=== PATIENT | female | born 1985 | race Two or more races ===

== ENCOUNTER 2019-02-26 08:45 | Observation (INO) | payer MEDICAID ==
[~2019-02-26 08:45] MED LIST: Lactated Ringers 1,000 ML IV SCH; Lidocaine 1%/Sod Bicarbonate in NS 8.4% 1 ML Syringe IDERM PRN; Sodium Chloride 0.9% 10 ML Syringe FLUSH PRN
--- NOTE | 2019-02-26 11:03 | PCM.PREANE ---
Preanesthetic Assessment - Anesthesia/Transfusion/Family Hx Anesthesia History: Prior Anesthesia Without Reaction Family History of Anesthesia Reaction: No Transfusion History: No Prior Transfusion(s) Intubation History: Unknown - Review of Systems General: No Symptoms Pulmonary: No Symptoms Cardiovascular: No Symptoms Gastrointestinal: No Symptoms Neurological: No Symptoms Other: Reports: None, Thyroid Problems - Physical Assessment NPO Status Date: 02/25/19 NPO Status Time: 20:00 O2 Sat by Pulse Oximetry: 100 Respiratory Rate: 18 Vital Signs: Last Vital Signs Temp 36.6 C 02/26/19 09:48 Pulse 70 02/26/19 09:48 Resp 18 02/26/19 09:48 BP 126/87 02/26/19 09:48 Pulse Ox 100 02/26/19 09:48 Height: 1.65 m Weight: 130.9 kg ASA Class: 3 Mental Status: Alert & Oriented x3 Airway Class: Mallampati = 3 Dentition: Reports: Normal Dentition Mouth Opening Finger Breadths: 2 ROM/Head Extension: Full Lungs: Clear to Auscultation, Normal Respiratory Effort Cardiovascular: Regular Rate, Regular Rhythm - Lab Values: Laboratory Last Values POC Glucose 90 mg/dL (70-105) 02/26/19 10:07 Urine HCG, Qual Negative (NEGATIVE) 02/26/19 09:50 - Allergies Allergies/Adverse Reactions: Allergies Allergy/AdvReac Type Severity Reaction Status Date / Time steri-strips Allergy Blisters Uncoded 02/25/19 14:10 - Blood Blood Available: No Product(s) Available: None - Anesthesia Plan Pre-Op Medication Ordered: None - Acknowledgements Anesthesia Type Planned: General Anesthesia Pt an Appropriate Candidate for the Planned Anesthesia: Yes Alternatives and Risks of Anesthesia Discussed w Pt/Guardian: Yes Pt/Guardian Understands and Agrees with Anesthesia Plan: Yes Additional Comments: glucose - 90 - morbidly obese- PreAnesthesia Questionnaire - Past Health History Medical/Surgical History: Denies Medical/Surgical History HEENT History: Reports: None Cardiovascular History: Reports: High Cholesterol Respiratory History: Reports: Other (See Below) Other Respiratory History: Pneumonia Gastrointestinal History: Reports: Other (See Below) Other Gastrointestinal History: Ventral hernia Genitourinary History: Reports: None [employer] OPERATOR History: Reports: Polycystic Ovaries, Other OB/BYN History: Gestational diabetes, pre-eclampsia, chlamydia Musculoskeletal History: Reports: None Neurological History: Reports: Migraines Psychiatric History: Reports: None Endocrine/Metabolic History: Reports: Obesity/BMI 30+, Other (See Below) Other Endocrine/Metabolic History: Insulin resistance Hematologic History: Reports: None Immunologic History: Reports: None Oncologic (Cancer) History: Reports: None Dermatologic History: Reports: None - Infectious Disease History Infectious Disease History: Reports: MRSA, Other (See Below) Other Infectious Disease History: H1N1 - Past Surgical History Head Surgeries/Procedures: Reports: None HEENT Surgical History: Reports: None Cardiovascular Surgical History: Reports: None Respiratory Surgical History: Reports: None GI Surgical History: Reports: None Female Surgical History: Reports: Section Endocrine Surgical History: Reports: None Neurological Surgical History: Reports: None Musculoskeletal Surgical History: Reports: None Oncologic Surgical History: Reports: None Dermatological Surgical History: Reports: None - SUBSTANCE USE Smoking Status *Q: Never Smoker Second Hand Smoke Exposure: No Recreational Drug Use History: No - HOME MEDS Home Medications: Home Meds Pnv95/Iron Fum/Folic Acid [ Caplet] 1 tab PO DAILY 04/26/16 [History] Cholecalciferol (Vitamin D3) [Vitamin D3] 1,000 units PO DAILY 02/25/19 [History ] SUMAtriptan [Imitrex] 50 mg PO ASDIRECTED PRN 02/25/19 [History] metFORMIN HCl [Metformin HCl] 1,000 mg PO DAILY 02/25/19 [History] - CURRENT (IN HOUSE) MEDS Current Meds: Current Medications Lactated Ringer's (Ringers, Lactated) 1,000 mls @ 125 mls/hr IV ASDIRECTED YURIY Stop: 02/26/19 23:00 Lidocaine/Sodium Bicarbonate (Buffered Lidocaine 1% In Ns 8.4%) 0.25 ml IDERM ONETIME PRN PRN Reason: Prior to IV Start Stop: 02/26/19 18:00 Sodium Chloride (Saline Flush) 10 ml FLUSH ASDIRECTED PRN PRN Reason: Keep Vein Open Stop: 02/26/19 18:00
[2019-02-26] MEDS ORDERED: fentaNYL 100 MCG/2 ML SDV ONE ×2 (11:07→11:54)
[2019-02-26] MEDS ORDERED: Propofol 200 MG/20 ML SDV ONE ×2 (11:07→16:35)
[2019-02-26] MEDS ORDERED: Rocuronium 50 MG/5 ML Vial ONE ×3 (11:08→16:46)
[2019-02-26] MEDS ORDERED: Midazolam 1 MG/ML 2 ML SDV ONE (11:08)
[2019-02-26] MEDS ORDERED: Ketorolac 30 MG/ML SDV ONE (11:10)
[2019-02-26] MEDS ORDERED: Ondansetron 4 MG/2 ML SDV ONE (11:10)
[2019-02-26] MEDS ORDERED: Dexamethasone 4 MG/ML SDV ONE (11:10)
[2019-02-26] MEDS ORDERED: Lidocaine 1% with EPINEPHrine 1:100,000 20 ML MDV ONE (11:21)
[2019-02-26] MEDS ORDERED: Bupivacaine 0.5%/EPINEPHrine 1:200,000 50 ML MDV ONE (11:21)
[2019-02-26] MEDS ORDERED: HYDROmorphone 0.5 MG/0.5 ML Syringe ONE ×5 (11:56→16:24)
[2019-02-26] MEDS ORDERED: Phenylephrine/Normal Saline 100 MCG/ML 10 ML Syringe ONE (12:12)
[2019-02-26] MEDS ORDERED: ceFAZolin 1 GM Vial ONE ×3 (12:12)
[2019-02-26] MEDS ORDERED: Glycopyrrolate 0.2 MG/ML SDV ONE ×5 (12:15→16:46)
[2019-02-26] MEDS ORDERED: Esmolol 100 MG/10 ML SDV ONE (12:21)
[2019-02-26] MEDS ORDERED: Lactated Ringers 1,000 ML ONE (12:25)
[2019-02-26] MEDS ORDERED: Neostigmine Methylsulfate 1 MG/ML 5 ML Syringe ONE (16:39)
--- NOTE | 2019-02-26 16:58 | PCM.OPNOTE ---
- General Post-Op/Procedure Note Date of Surgery/Procedure: 02/26/19 Operative Procedure(s): 1. laparoscopic incisional hernia repair with mesh. 2. Laparoscopic lysis of adhesions Findings: incisional hernia defects on superior incision, also 4cm x 7cm hernia defect in the LLQ along the incision Pre Op Diagnosis: ventral hernia Post-Op Diagnosis: incisional hernias Anesthesia Technique: General ET Tube Primary Surgeon: Dori Dixon Anesthesia Provider: Juan Valdivia Embedded Software Developer: Tom Joseph Reason Embedded Software Developer Was Necessary: complex surgical case Pathology: none Fluid Replacement, Intraop: 3,500 Output, Urine Amount: 250 EBL in mLs: 50 Complications: none apparent Condition: Good Free Text/Narrative:: Intake & Output 02/26/19 02/26/19 02/26/19 06:59 14:59 22:59 Output Total 250 Balance -250
[2019-02-26] MEDS ORDERED: Ondansetron 4 MG Tab.DIS PO PRN (17:07)
[2019-02-26] MEDS ORDERED: HYDROmorphone 1 MG/ML Syringe IVPUSH PRN (17:07)
--- NOTE | 2019-02-26 17:07 | PCM.PRNOTE ---
- Free Text/Narrative Note: Operative Report Date of surgery: February 26, 2019 Preoperative diagnosis: Ventral hernia Postoperative diagnosis: Incisional hernias Surgeon: Dr. Dori Dixon Anesthesia: General ET Sole Rounder: Juan Valdivia CRNA Estimated blood loss: 50 mL IV fluids: 3500 mL Urine output: 250mL Drains and lines: None Indication for the procedure: The patient is a 33-year-old lady who presented to my office with complaint of ventral hernia. The patient reports having , abdominal pain associated with hernia. She was originally seen and counseled against surgery due to her large body habitus, however, she continued to have symptoms and the symptoms worsened. She represented for discussion of hernia repair.. I discussed a procedure of a laparoscopic ventral hernia repair with mesh with the patient. Risks of infection, bleeding and mesh complication was reviewed, as well as her risk of recurrence due to her size. Written consent was obtained Description of the procedure: The patient presented to the outpatient holding area on the day for procedure history and physical were verified and the consent was present and on the chart. She was taken back to the operating room and placed in supine position on the operating table. SCD boots were placed and functional prior to the service procedure. The patient received preoperative antibiotics as per SCIP protocol. A Adame catheter was placed with return of clear yellow urine. The patient had successful induction of general anesthesia and was intubated without difficulty. The patient's left arm was tucked and the pressure points were padded. The patient was prepped and draped in standard surgical fashion and a timeout was performed. The abdomen was draped with Ioban to begin. A 5 mm incision was then made in the left upper quadrant just under the subcostal margin. A 5 mm port was then inserted into the abdomen with the Visiport technique. The abdomen was insufflated to 15 mmHg. There was no evidence of any injury in the area where we had entered the abdomen. We then proceeded to survey the area of hernia. There were adhesions to the midline abdominal wall as well as a large left lower quadrant defect. We proceeded to place a TAP block using 1% lidocaine with epinephrine mixed with 0.5% bupivacaine with epinephrine. A 5 mm port was inserted in the right lower quadrant and right upper quadrant. An additional 5 mm port was placed in the right abdomen. We proceeded to remove the adhesions to the midline scar using a LigaSure device. We then were able to identify the hernia defect. There was small bowel within the hernia defect. This was reduced. We then proceeded to remove any additional scar tissue. We then used a spinal needle to size the hernia, however, due to her large size , spinal needle would not traverse the area. A ruler was then passed into the abdomen and the hernia defect measured approximately 4 cm x 7 cm. there were additional small subcentimeter defects at the superior aspect of the scar of the umbilicus. In order to cover the entire area of hernia, an oval two-sided [id number] mesh was selected. A 12 mm port was then placed through the hernia defect in the left lower quadrant and the mesh was rolled and placed through this port. The balloon device was then inflated to unfurl the mesh. We then proceeded to use the secure strap tacker to affix the mesh to the abdominal wall. We noticed, however, after placing any sutures that the left lower quadrant. Rectal is not covered. We then removed the sutures and mesh from the abdomen. We proceeded to affix [place] suture in all 4 quadrants of the mesh. The mesh was placed back into the abdomen after it was soaked in saline. It was passed back through the 12 mm port. The mesh was then unfurled within the abdomen and the fixation site was marked with the spinal needle or possible. A small stab incision was made in the area where we had selected. An Endo Close suture passer was then passed into the abdomen and the tails of the [place] suture were brought to the abdominal wall and secured. We then proceeded to do the same with the four remaining sutures in all four quadrants of the mesh. A SecureStrap Ethicon tacker was then used to circumferentially tack the to the abdominal wall. The superior most aspect of the mesh, however, kept tearing away from the abdominal wall. An additional 5 mm port was placed in the left upper quadrant. Additional [place] suture was placed through the mesh at this location. However, we still did not have good coverage. We will also having difficulty maintaining enough insufflation in the peritoneum to adequately visualize all of the structures. She had a very large amount of insufflation that was filling the large hernia defect. At this point, Dr. Tom Joseph scrubbed into the case. We then attempted to sew the mesh to the abdominal wall. However, there was not ability to get good purchase on the fascia. We then placed metal permanent tacker. Sick conventionally around the mesh where possible. We did note that there was suboptimal coverage of the left lower quadrant inguinal hernia. However, due to the extensive amount of abdominal wall fat and difficulty of the case. The mesh was used as it had been placed to cover the hernia defect. At the conclusion of this portion of the procedure, there was still clear yellow urine within the Adame catheter device. The abdomen was then desufflated and the ports were removed. The stay sutures were tied down to the abdominal wall and the subcutaneous tissue was released as necessary for good closure. The incision sites were then closed with 4-0 Monocryl suture. Dermabond surgical glue were used to cover the port sites and stab incisions. The patient tolerated the procedure well and was transported to the PACU in stable condition. All sponge and needle counts correct. The Adame catheter was left in place at the end of the case because she will stay overnight. Complications: None apparent. Disposition: Stable to PACU Dori Dixon MD General Surgery
[2019-02-26] MEDS ORDERED: fentaNYL 100 MCG/2 ML SDV IVPUSH PRN (17:09)
[2019-02-26] MEDS ORDERED: Ondansetron 4 MG/2 ML SDV IVPUSH PRN (17:09)
--- NOTE | 2019-02-26 17:11 | PCM.POSTAN ---
POST ANESTHESIA ASSESSMENT - MENTAL STATUS Mental Status: Alert - RESPIRATORY Respiratory Status: Respiratory Rate WNL, Airway Patent, O2 Saturation Stable - CARDIOVASCULAR CV Status: Pulse Rate WNL, Blood Pressure Stable - GASTROINTESTINAL GI Status: No Symptoms - POST OP HYDRATION Hydration Status: Adequate & Stable (doing well - awake alert talking stable)
[2019-02-26] MEDS ORDERED: Lactated Ringers 1,000 ML IV SCH (17:15)
[2019-02-26] MEDS ORDERED: diphenhydrAMINE 50 MG/ML SDV IVPUSH ONE (17:16)
[2019-02-26] MEDS ORDERED: Meperidine 50 MG/ML Vial IVPUSH PRN (17:24)
[2019-02-26] MEDS: Ibuprofen 600 MG Tab PO PRN (19:12)
[2019-02-26] MEDS: Acetaminophen/HYDROcodone 325-5 MG Tab PO PRN (21:32)
[2019-02-27] MEDS: Ibuprofen 600 MG Tab PO PRN (05:58)
[2019-02-27] MEDS ORDERED: Heparin Sodium 5,000 Units/ML Vial SUBCUT SCH (08:00)
[2019-02-27] MEDS ORDERED: HYDROmorphone 0.5 MG/0.5 ML Syringe IVPUSH PRN (08:30)
--- NOTE | 2019-02-27 09:56 | PCM.SURGPN ---
- General Info Date of Service: 02/27/19 Date of Surgery/Procedure: 02/26/19 POD#: 1 Functional Status: Reports: Pain Controlled, Tolerating Diet, Ambulating, Urinating, Incentive Spirometry, Other (reports pulling sensation in her abdomen ) - Patient Data Vitals - Most Recent: Last Vital Signs Temp 36.7 C 02/27/19 05:56 Pulse 91 02/27/19 05:56 Resp 14 02/27/19 05:56 BP 124/75 02/27/19 05:56 Pulse Ox 99 02/27/19 06:29 Weight - Most Recent: 134.49 kg I&O - Last 24 Hours: Intake & Output 02/26/19 02/27/19 02/27/19 22:59 06:59 14:59 Intake Total 4050 800 Output Total 560 3400 Balance 3490 -2600 Lab Results Last 24 Hrs: Laboratory Results - last 24 hr 02/26/19 02/26/19 02/27/19 Range/Units 09:50 10:07 05:40 Plt Count 219 (182-369) K/mm3 POC Glucose 90 (70-105) mg/dL Urine HCG, Qual Negative (NEGATIVE) Med Orders - Current: Current Medications Hydrocodone Bitart/Acetaminophen (Hadley 325-5 Mg) 2 tab PO Q4H PRN PRN Reason: Pain (moderate 4-6) Last Admin: 02/26/19 21:32 Dose: 2 tab Heparin Sodium (Porcine) (Heparin Sodium) 5,000 units SUBCUT Q8H YURIY Last Admin: 02/27/19 08:53 Dose: 5,000 units Hydromorphone HCl (Dilaudid) 0.5 mg IVPUSH Q2H PRN PRN Reason: Breakthrough Pain Ibuprofen (Motrin) 600 mg PO Q6H PRN PRN Reason: Pain (mild 1-3) Last Admin: 02/27/19 05:58 Dose: 600 mg Ondansetron HCl (Zofran) 4 mg IVPUSH ONETIME PRN PRN Reason: Nausea/Vomiting Ondansetron HCl (Zofran Odt) 4 mg PO Q6H PRN PRN Reason: nausea, able to take PO Discontinued Medications Bupivacaine HCl/Epinephrine Bitart (Marcaine 0.5%/Epinephrine 1:200,000) Confirm Administered Dose 50 ml .ROUTE .STK-MED ONE Stop: 02/26/19 11:22 Last Admin: 02/26/19 12:10 Dose: 30 ml Cefazolin Sodium (Ancef) Confirm Administered Dose 1 gm .ROUTE .STK-MED ONE Stop: 02/26/19 12:13 Cefazolin Sodium (Ancef) Confirm Administered Dose 1 gm .ROUTE .STK-MED ONE Stop: 02/26/19 12:13 Cefazolin Sodium (Ancef) Confirm Administered Dose 1 gm .ROUTE .STK-MED ONE Stop: 02/26/19 12:13 Dexamethasone (Dexamethasone) Confirm Administered Dose 4 mg .ROUTE .STK-MED ONE Stop: 02/26/19 11:11 Diphenhydramine HCl (Benadryl) 25 mg IVPUSH ONETIME ONE Stop: 02/26/19 17:17 Last Admin: 02/26/19 17:30 Dose: 25 mg Esmolol HCl (Esmolol) Confirm Administered Dose 100 mg .ROUTE .ST-MED ONE Stop: 02/26/19 12:22 Fentanyl (Sublimaze) Confirm Administered Dose 100 mcg .ROUTE .ST-MED ONE Stop: 02/26/19 11:08 Fentanyl (Sublimaze) Confirm Administered Dose 100 mcg .ROUTE .STK-MED ONE Stop: 02/26/19 11:55 Fentanyl (Sublimaze) 50 mcg IVPUSH Q5M PRN PRN Reason: Pain Last Admin: 02/26/19 17:37 Dose: 50 mcg Glycopyrrolate (Robinul) Confirm Administered Dose 0.2 mg .ROUTE .STK-MED ONE Stop: 02/26/19 12:16 Glycopyrrolate (Robinul) Confirm Administered Dose 0.2 mg .ROUTE .STK-MED ONE Stop: 02/26/19 12:16 Glycopyrrolate (Robinul) Confirm Administered Dose 0.2 mg .ROUTE .STK-MED ONE Stop: 02/26/19 12:16 Glycopyrrolate (Robinul) Confirm Administered Dose 0.2 mg .ROUTE .STK-MED ONE Stop: 02/26/19 16:46 Glycopyrrolate (Robinul) Confirm Administered Dose 0.2 mg .ROUTE .STK-MED ONE Stop: 02/26/19 16:47 Hydromorphone HCl (Dilaudid) Confirm Administered Dose 0.5 mg .ROUTE .STK-MED ONE Stop: 02/26/19 11:57 Hydromorphone HCl (Dilaudid) Confirm Administered Dose 0.5 mg .ROUTE .STK-MED ONE Stop: 02/26/19 11:58 Hydromorphone HCl (Dilaudid) Confirm Administered Dose 0.5 mg .ROUTE .STK-MED ONE Stop: 02/26/19 13:18 Hydromorphone HCl (Dilaudid) Confirm Administered Dose 0.5 mg .ROUTE .STK-MED ONE Stop: 02/26/19 13:19 Hydromorphone HCl (Dilaudid) Confirm Administered Dose 1 mg .ROUTE .STK-MED ONE Stop: 02/26/19 16:25 Hydromorphone HCl (Dilaudid) 0.5 mg IVPUSH Q2H PRN PRN Reason: Breakthrough Pain Lactated Ringer's (Ringers, Lactated) 1,000 mls @ 125 mls/hr IV ASDIRECTED [facility] Stop: 02/26/19 23:00 Last Admin: 02/26/19 10:07 Dose: 125 mls/hr Lactated Ringer's (Ringers, Lactated) Confirm Administered Dose 1,000 mls @ as directed .ROUTE .STK-MED ONE Stop: 02/26/19 12:26 Lactated Ringer's (Ringers, Lactated) 1,000 mls @ 125 mls[facility] Ketorolac Tromethamine (Toradol) Confirm Administered Dose 30 mg .ROUTE .STK- MED ONE Stop: 02/26/19 11:11 Lidocaine/Epinephrine (Xylocaine 1% With Epinephrine 1:100,000) Confirm Administered Dose 40 ml .ROUTE .STK-MED ONE Stop: 02/26/19 11:22 Last Admin: 02/26/19 12:10 Dose: 30 ml Lidocaine/Sodium Bicarbonate (Buffered Lidocaine 1% In Ns 8.4%) 0.25 ml IDERM ONETIME PRN PRN Reason: Prior to IV Start Stop: 02/26/19 18:00 Meperidine HCl (Meperidine) 12.5 mg IVPUSH ONETIME PRN PRN Reason: Shivering Midazolam HCl (Versed 1 Mg/Ml) Confirm Administered Dose 2 mg .ROUTE .STK-MED ONE Stop: 02/26/19 11:09 Neostigmine Methylsulfate (Neostigmine) Confirm Administered Dose 5 mg .ROUTE .STK-MED ONE Stop: 02/26/19 16:40 Ondansetron HCl (Zofran) Confirm Administered Dose 4 mg .ROUTE .STK-MED ONE Stop: 02/26/19 11:11 Phenylephrine HCl (Phenylephrine In Ns 100 Mcg/Ml) Confirm Administered Dose 1 mg .ROUTE .STK-MED ONE Stop: 02/26/19 12:13 Propofol (Diprivan 20 Ml) Confirm Administered Dose 200 mg .ROUTE .STK-MED ONE Stop: 02/26/19 11:08 Propofol (Diprivan 20 Ml) Confirm Administered Dose 200 mg .ROUTE .STK-MED ONE Stop: 02/26/19 16:36 Rocuronium [place] (Zemuron) Confirm Administered Dose 50 mg .ROUTE .STK-MED ONE Stop: 02/26/19 11:09 Rocuronium [place] (Zemuron) Confirm Administered Dose 50 mg .ROUTE .STK-MED ONE Stop: 02/26/19 14:00 Rocuronium [place] (Zemuron) Confirm Administered Dose 50 mg .ROUTE .STK-MED ONE Stop: 02/26/19 16:47 Sodium Chloride (Saline Flush) 10 ml FLUSH ASDIRECTED PRN PRN Reason: Keep Vein Open Stop: 02/26/19 18:00 - Exam Wound/Incisions: Healing Well, No Drainage General: Alert, Oriented HEENT: Pupils Equal, EOMI Lungs: Normal Respiratory Effort GI/Abdominal Exam: Soft, No Distention, Tender (appropriately tender to palpation) - Problem List & Annotations (1) Hernia of abdominal wall SNOMED Code(s): 359508123 Code(s): K43.9 - VENTRAL HERNIA WITHOUT OBSTRUCTION OR GANGRENE Status: Acute Current Visit: No - Problem List Review Problem List Initiated/Reviewed/Updated: Yes - My Orders Last 24 Hours: Active Orders 24 hr Category Date Time Status Patient Status [ADT] Routine ADT 02/26/19 17:08 Active Antiembolic Devices [RC] 09,21 Care 02/26/19 17:09 Active Communication Order [RC] 2100 Care 02/26/19 17:14 Active Oxygen Therapy [RC] PRN Care 02/26/19 17:08 Active RT Incentive Spirometry [RC] Q1HWA Care 02/26/19 17:12 Active Urinary Catheter Assessment [RC] Care 02/26/19 17:07 Active Urinary Catheter Removal [RC] Per Unit Routine Care 02/26/19 20:00 Active VTE/DVT Education [RC] Care 02/26/19 17:08 Active Vital Signs [RC] Q4HR Care 02/26/19 17:08 Active Regular Diet [DIET] Diet 02/26/19 Dinner Active Acetaminophen/HYDROcodone [Hadley 325-5 MG] Med 02/26/19 17:07 Active 2 tab PO Q4H PRN HYDROmorphone [Dilaudid] Med 02/27/19 08:30 Active 0.5 mg IVPUSH Q2H PRN Heparin Sodium Med 02/27/19 08:00 Active 5,000 units SUBCUT Q8H Ibuprofen [Motrin] Med 02/26/19 17:07 Active 600 mg PO Q6H PRN Ondansetron [Zofran ODT] Med 02/26/19 17:07 Active 4 mg PO Q6H PRN Ondansetron [Zofran] Med 02/26/19 17:09 Active 4 mg IVPUSH ONETIME PRN Sequential Compression Device [OM.PC] Per Unit Routine Oth 02/26/19 17:09 Ordered Resuscitation Status Routine Resus Stat 02/26/19 17:07 Ordered Medication Orders Hydrocodone Bitart/Acetaminophen ([place] 325-5 Mg) 2 tab PO Q4H PRN PRN Reason: Pain (moderate 4-6) Last Admin: 02/26/19 21:32 Dose: 2 tab Heparin Sodium (Porcine) (Heparin Sodium) 5,000 units SUBCUT Q8H [facility] Last Admin: 02/27/19 08:53 Dose: 5,000 units Hydromorphone HCl (Dilaudid) 0.5 mg IVPUSH Q2H PRN PRN Reason: Breakthrough Pain Ibuprofen (Motrin) 600 mg PO Q6H PRN PRN Reason: Pain (mild 1-3) Last Admin: 02/27/19 05:58 Dose: 600 mg Admin: 02/26/19 19:12 Dose: 600 mg Ondansetron HCl (Zofran) 4 mg IVPUSH ONETIME PRN PRN Reason: Nausea/Vomiting Ondansetron HCl (Zofran Odt) 4 mg PO Q6H PRN PRN Reason: nausea, able to take PO - Assessment Assessment (Free Text/Narrative):: 33 y/o lady POD 1 s/p lap incisional hernia repair with mesh - Plan Plan (Free Text/Narrative):: - continue current pain regimen - use Incentive spirometer, cough and deep breathing - use of abdominal binder for comfort - encourage ambulation - regular diet as tolerated Discharge home. Follow up in 2 weeks Dori Dixon MD General Surgery
[2019-02-27] MEDS: Acetaminophen/HYDROcodone 325-5 MG Tab PO PRN (10:24)
[2019-02-27 10:41] VITALS: BP 124/77
--- NOTE | 2019-02-27 10:44 | PCM.DCSUM1 ---
Discharge Summary - Hospital Course Free Text/Narrative:: The patient is a 33-year-old female who had a large incisional ventral hernia. She had a laparoscopic ventral hernia repair, however, the repair was complex and included placement of a large mesh. She was kept overnight for observation and pain control. On postoperative day 1, she is doing very well. She is controlled on by mouth pain medications. She is appropriate for discharge home. Diagnosis: Stroke: No Modified [place] Scale: No Signif.Disability Despite Sympt.Able to Carry Out Usual Act./Duties Modified [place] Scale Score: 1 - Discharge Data Discharge Date: 02/27/19 Discharge Disposition: Home, Self-Care 01 Condition: Good - Discharge Diagnosis/Problem(s) (1) Hernia of abdominal wall SNOMED Code(s): 470817353 ICD Code: K43.9 - VENTRAL HERNIA WITHOUT OBSTRUCTION OR GANGRENE Status: Acute Current Visit: No - Patient Summary/Data Operative Procedure(s) Performed: 1. laparoscopic incisional hernia repair with mesh. 2. Laparoscopic lysis of adhesions - Patient Instructions Diet: Usual Diet as Tolerated Activity: As Tolerated, No Lifting Over 20 Pounds (for 4 weeks), No Strenuous Activities (for 2 weeks) Driving: Do Not Drive (while taking the narcotic pain medications) Showering/Bathing: May Shower Wound/Incision Care: Keep Operative Site/Wound Site Clean and Dry Notify Provider of: Fever, Increased Pain, Swelling and Redness, Drainage, Nausea and/or Vomiting - Discharge Plan *PRESCRIPTION DRUG MONITORING PROGRAM REVIEWED*: Not Applicable *COPY OF PRESCRIPTION DRUG MONITORING REPORT IN PATIENT ODALYS: Not Applicable Prescriptions/Med Rec: Acetaminophen/HYDROcodone [[place] 325-5 MG] 1 tab PO Q4H PRN #40 tablet PRN Reason: Pain (Moderate 4-6) Docusate Sodium [Colace] 100 mg PO BID 20 Days #40 cap Ibuprofen [Motrin] 600 mg PO Q6H PRN 20 Days #120 tablet PRN Reason: Pain (Mild 1-3) Home Medications: Home Meds Pnv95/Iron Fum/Folic Acid [ Caplet] 1 tab PO DAILY 04/26/16 [History] Cholecalciferol (Vitamin D3) [Vitamin D3] 1,000 units PO DAILY 02/25/19 [History ] metFORMIN HCl [Metformin HCl] 1,000 mg PO DAILY 02/25/19 [History] Acetaminophen/HYDROcodone [[place] 325-5 MG] 1 tab PO Q4H PRN #40 tablet 02/27/19 [Rx] Docusate Sodium [Colace] 100 mg PO BID 20 Days #40 cap 02/27/19 [Rx] Ibuprofen [Motrin] 600 mg PO Q6H PRN 20 Days #120 tablet 02/27/19 [Rx] Patient Handouts: Laparoscopic Ventral Hernia Repair, Laparoscopic Ventral Hernia Repair, Care After Referrals: Dori Dixon MD [Physician] - (Please call and schedule a follow-up with Dr. Patel in 2 weeks. ) - Discharge Summary/Plan Comment DC Time >30 min.: No - Patient Data Vitals - Most Recent: Last Vital Signs Temp 37.1 C 02/27/19 08:05 Pulse 85 02/27/19 08:05 Resp 16 02/27/19 08:05 BP 124/77 02/27/19 08:05 Pulse Ox 99 02/27/19 08:05 Weight - Most Recent: 134.49 kg I&O - Last 24 hours: Intake & Output 02/26/19 02/27/19 02/27/19 22:59 06:59 14:59 Intake Total 4050 800 Output Total 560 3400 Balance 3490 -2600 Lab Results - Last 24 hrs: Laboratory Results - last 24 hr 02/27/19 Range/Units 05:40 Plt Count 219 (182-369) K/mm3 Med Orders - Current: Current Medications Hydrocodone Bitart/Acetaminophen ([place] 325-5 Mg) 2 tab PO Q4H PRN PRN Reason: Pain (moderate 4-6) Last Admin: 02/27/19 10:24 Dose: 2 tab Heparin Sodium (Porcine) (Heparin Sodium) 5,000 units SUBCUT Q8H YURIY Last Admin: 02/27/19 08:53 Dose: 5,000 units Hydromorphone HCl (Dilaudid) 0.5 mg IVPUSH Q2H PRN PRN Reason: Breakthrough Pain Ibuprofen (Motrin) 600 mg PO Q6H PRN PRN Reason: Pain (mild 1-3) Last Admin: 02/27/19 05:58 Dose: 600 mg Ondansetron HCl (Zofran) 4 mg IVPUSH ONETIME PRN PRN Reason: Nausea/Vomiting Ondansetron HCl (Zofran Odt) 4 mg PO Q6H PRN PRN Reason: nausea, able to take PO Discontinued Medications Bupivacaine HCl/Epinephrine Bitart (Marcaine 0.5%/Epinephrine 1:200,000) Confirm Administered Dose 50 ml .ROUTE .STK-MED ONE Stop: 02/26/19 11:22 Last Admin: 02/26/19 12:10 Dose: 30 ml Cefazolin Sodium (Ancef) Confirm Administered Dose 1 gm .ROUTE .STK-MED ONE Stop: 02/26/19 12:13 Cefazolin Sodium (Ancef) Confirm Administered Dose 1 gm .ROUTE .STK-MED ONE Stop: 02/26/19 12:13 Cefazolin Sodium (Ancef) Confirm Administered Dose 1 gm .ROUTE .STK-MED ONE Stop: 02/26/19 12:13 Dexamethasone (Dexamethasone) Confirm Administered Dose 4 mg .ROUTE .STK-MED ONE Stop: 02/26/19 11:11 Diphenhydramine HCl (Benadryl) 25 mg IVPUSH ONETIME ONE Stop: 02/26/19 17:17 Last Admin: 02/26/19 17:30 Dose: 25 mg Esmolol HCl (Esmolol) Confirm Administered Dose 100 mg .ROUTE .STK-MED ONE Stop: 02/26/19 12:22 Fentanyl (Sublimaze) Confirm Administered Dose 100 mcg .ROUTE .STK-MED ONE Stop: 02/26/19 11:08 Fentanyl (Sublimaze) Confirm Administered Dose 100 mcg .ROUTE .STK-MED ONE Stop: 02/26/19 11:55 Fentanyl (Sublimaze) 50 mcg IVPUSH Q5M PRN PRN Reason: Pain Last Admin: 02/26/19 17:37 Dose: 50 mcg Glycopyrrolate (Robinul) Confirm Administered Dose 0.2 mg .ROUTE .STK-MED ONE Stop: 02/26/19 12:16 Glycopyrrolate (Robinul) Confirm Administered Dose 0.2 mg .ROUTE .STK-MED ONE Stop: 02/26/19 12:16 Glycopyrrolate (Robinul) Confirm Administered Dose 0.2 mg .ROUTE .STK-MED ONE Stop: 02/26/19 12:16 Glycopyrrolate (Robinul) Confirm Administered Dose 0.2 mg .ROUTE .ST-MED ONE Stop: 02/26/19 16:46 Glycopyrrolate (Robinul) Confirm Administered Dose 0.2 mg .ROUTE .[facility]-MED ONE Stop: 02/26/19 16:47 Hydromorphone HCl (Dilaudid) Confirm Administered Dose 0.5 mg .ROUTE .ST-MED ONE Stop: 02/26/19 11:57 Hydromorphone HCl (Dilaudid) Confirm Administered Dose 0.5 mg .ROUTE .ST-MED ONE Stop: 02/26/19 11:58 Hydromorphone HCl (Dilaudid) Confirm Administered Dose 0.5 mg .ROUTE .ST-MED ONE Stop: 02/26/19 13:18 Hydromorphone HCl (Dilaudid) Confirm Administered Dose 0.5 mg .ROUTE .[facility]-MED ONE Stop: 02/26/19 13:19 Hydromorphone HCl (Dilaudid) Confirm Administered Dose 1 mg .ROUTE .[facility]-MED ONE Stop: 02/26/19 16:25 Hydromorphone HCl (Dilaudid) 0.5 mg IVPUSH Q2H PRN PRN Reason: Breakthrough Pain Lactated Ringer's (Ringers, Lactated) 1,000 mls @ 125 mls/hr IV ASDIRECTED [facility] Stop: 02/26/19 23:00 Last Admin: 02/26/19 10:07 Dose: 125 mls/hr Lactated Ringer's (Ringers, Lactated) Confirm Administered Dose 1,000 mls @ as directed .ROUTE .[facility]-MED ONE Stop: 02/26/19 12:26 Lactated Ringer's (Ringers, Lactated) 1,000 mls @ 125 mls/hr IV ASDIRECTED [facility] Ketorolac Tromethamine (Toradol) Confirm Administered Dose 30 mg .ROUTE .ST- MED ONE Stop: 02/26/19 11:11 Lidocaine/Epinephrine (Xylocaine 1% With Epinephrine 1:100,000) Confirm Administered Dose 40 ml .ROUTE .STK-MED ONE Stop: 02/26/19 11:22 Last Admin: 02/26/19 12:10 Dose: 30 ml Lidocaine/Sodium Bicarbonate (Buffered Lidocaine 1% In Ns 8.4%) 0.25 ml IDERM ONETIME PRN PRN Reason: Prior to IV Start Stop: 02/26/19 18:00 Meperidine HCl (Meperidine) 12.5 mg IVPUSH ONETIME PRN PRN Reason: Shivering Midazolam HCl (Versed 1 Mg/Ml) Confirm Administered Dose 2 mg .ROUTE .STK-MED ONE Stop: 02/26/19 11:09 Neostigmine Methylsulfate (Neostigmine) Confirm Administered Dose 5 mg .ROUTE .STK-MED ONE Stop: 02/26/19 16:40 Ondansetron HCl (Zofran) Confirm Administered Dose 4 mg .ROUTE .STK-MED ONE Stop: 02/26/19 11:11 Phenylephrine HCl (Phenylephrine In Ns 100 Mcg/Ml) Confirm Administered Dose 1 mg .ROUTE .STK-MED ONE Stop: 02/26/19 12:13 Propofol (Diprivan 20 Ml) Confirm Administered Dose 200 mg .ROUTE .STK-MED ONE Stop: 02/26/19 11:08 Propofol (Diprivan 20 Ml) Confirm Administered Dose 200 mg .ROUTE .STK-MED ONE Stop: 02/26/19 16:36 Rocuronium [place] (Zemuron) Confirm Administered Dose 50 mg .ROUTE .STK-MED ONE Stop: 02/26/19 11:09 Rocuronium [place] (Zemuron) Confirm Administered Dose 50 mg .ROUTE .STK-MED ONE Stop: 02/26/19 14:00 Rocuronium [place] (Zemuron) Confirm Administered Dose 50 mg .ROUTE .STK-MED ONE Stop: 02/26/19 16:47 Sodium Chloride (Saline Flush) 10 ml FLUSH ASDIRECTED PRN PRN Reason: Keep Vein Open Stop: 02/26/19 18:00
--- NOTE | 2019-03-01 10:26 | PCM48HPAN ---
Post Anesthesia Note - EVALUATION WITHIN 48HRS OF ANESTHETIC Vital Signs in Normal Range: Yes Patient Participated in Evaluation: No Respiratory Function Stable: Yes Airway Patent: Yes Cardiovascular Function Stable: Yes Hydration Status Stable: Yes Pain Control Satisfactory: Yes Nausea and Vomiting Control Satisfactory: Yes Mental Status Recovered: Yes Pulse Rate: 85 Resp Rate: 16 Temperature: 37.1 C Blood Pressure: 124/77 - COMMENTS/OBSERVATIONS Free Text/Narrative:: 02/26/19, 1900, patient discharged from hospital per RN.
== END 2019-02-27 11:45 | disposition home or self-care (01) ==
LOC: JD.SDS 08:45 → JD.MS 17:08
PROVIDERS: ADMIT Surgery; ATTEND Surgery
DX: K43.2 Incisional hernia without obstruction or gangrene (principal); E66.01 Morbid (severe) obesity due to excess calories; Z68.42 Body mass index [BMI] 45.0-49.9, adult; E78.5 Hyperlipidemia, unspecified; E28.2 Polycystic ovarian syndrome; Z79.890 Hormone replacement therapy; Z79.891 Long term (current) use of opiate analgesic; Z91.040 Latex allergy status
CPT/HCPCS: 36415; 49654; 81025; 82962; 85049; A9270; C1781; J0690; J1100; J1170; J1200; J1644; J1885; J2250; J2370; J2405; J2704; J2710; J3010; J3490; J7120; 00840

== ENCOUNTER 2019-02-28 11:58 | Emergency (ER) | payer MEDICAID ==
[2019-02-28 12:08] VITALS: BP 154/87
--- NOTE | 2019-02-28 13:03 | EDM.PDOC ---
ED HPI GENERAL MEDICAL PROBLEM - General Chief Complaint: Wound Recheck Stated Complaint: POST SURGERY BLEEDING Time Seen by Provider: 02/28/19 12:34 Source of Information: Reports: Patient, RN Notes Reviewed History Limitations: Reports: No Limitations - History of Present Illness INITIAL COMMENTS - FREE TEXT/NARRATIVE: Patient is a 33-year-old female who presents to the ED for the evaluation of a wound recheck. The patient states that she had a hernia repair done with Dr. Patel on Friday. There were no complications from the surgery. She states that around 2 AM this morning however she became nauseated and vomited a couple times, she then noticed some bleeding from one of the surgical wounds. She states that there was quite a lot of bleeding at home, and has since subsided. She does not feel dizzy, lightheaded, or have any abdominal pain. Abdomen Pain Score (Numeric/FACES): 5 - Related Data Allergies Allergy/AdvReac Type Severity Reaction Status Date / Time steri-strips Allergy Blisters Uncoded 02/28/19 12:09 Home Meds: Home Meds Pnv95/Iron Fum/Folic Acid [ Caplet] 1 tab PO DAILY 04/26/16 [History] Cholecalciferol (Vitamin D3) [Vitamin D3] 1,000 units PO DAILY 02/25/19 [History ] metFORMIN HCl [Metformin HCl] 1,000 mg PO DAILY 02/25/19 [History] Acetaminophen/HYDROcodone [[place] 325-5 MG] 1 tab PO Q4H PRN #40 tablet 02/27/19 [Rx] Docusate Sodium [Colace] 100 mg PO BID 20 Days #40 cap 02/27/19 [Rx] Ibuprofen [Motrin] 600 mg PO Q6H PRN 20 Days #120 tablet 02/27/19 [Rx] Past Medical History - Past Health History Medical/Surgical History: Denies Medical/Surgical History HEENT History: Reports: None Cardiovascular History: Reports: High Cholesterol Other Cardiovascular History: Patient has high cholesterol on history but states she does not have high cholesterol Respiratory History: Reports: Other (See Below) Other Respiratory History: Pneumonia Gastrointestinal History: Reports: GERD, Other (See Below) Other Gastrointestinal History: Ventral hernia Genitourinary History: Reports: None USER EXPERIENCE ARCHITECT History: Reports: Polycystic Ovaries, Other USER EXPERIENCE ARCHITECT History: Gestational diabetes, pre-eclampsia, chlamydia Musculoskeletal History: Reports: Arthritis Neurological History: Reports: Migraines Psychiatric History: Reports: None Other Psychiatric History: Patient states she gets anxiety but has not been diagnosed with anxiety Endocrine/Metabolic History: Reports: Obesity/BMI 30+, Other (See Below) Other Endocrine/Metabolic History: Insulin resistance Hematologic History: Reports: None Immunologic History: Reports: None Oncologic (Cancer) History: Reports: None Dermatologic History: Reports: None - Infectious Disease History Infectious Disease History: Reports: MRSA, Other (See Below) Other Infectious Disease History: H1N1 - Past Surgical History Head Surgeries/Procedures: Reports: None HEENT Surgical History: Reports: None Cardiovascular Surgical History: Reports: None Respiratory Surgical History: Reports: None GI Surgical History: Reports: None Female Surgical History: Reports: Section Endocrine Surgical History: Reports: None Neurological Surgical History: Reports: None Musculoskeletal Surgical History: Reports: None Oncologic Surgical History: Reports: None Dermatological Surgical History: Reports: None Social & Family History - Tobacco Use Smoking Status *Q: Never Smoker - Caffeine Use Caffeine Use: Reports: None - Recreational Drug Use Recreational Drug Use: No ED ROS GENERAL - Review of Systems Review Of Systems: See Below Constitutional: Reports: No Symptoms HEENT: Reports: No Symptoms Respiratory: Reports: No Symptoms Cardiovascular: Reports: No Symptoms Endocrine: Reports: No Symptoms GI/Abdominal: Reports: No Symptoms : Reports: No Symptoms Musculoskeletal: Reports: No Symptoms Skin: Reports: Wound (Several surgical wounds, that are Dermabond and. One wound on the inferior abdomen, with active serosanguineous drainage.) Neurological: Reports: No Symptoms Psychiatric: Reports: No Symptoms Hematologic/Lymphatic: Reports: No Symptoms Immunologic: Reports: No Symptoms ED EXAM, GENERAL - Physical Exam Exam: See Below Exam Limited By: No Limitations General Appearance: Alert, WD/WN, No Apparent Distress Eye Exam: Bilateral Eye: Normal Inspection Respiratory/Chest: No Respiratory Distress, Lungs Clear, Normal Breath Sounds, No Accessory Muscle Use, Chest Non-Tender Cardiovascular: Normal Peripheral Pulses, Regular Rate, Rhythm, No Murmur GI/Abdominal: Normal Bowel Sounds, Soft, Non-Tender, No Distention, Other ( Diffuse bruising located to the lower abdomen, there is an open wound that when you push on the area of bruising, serosanguineous fluid does express from this wound. The patient does not note any pain when I press on her abdomen, just a pressure from my hands.) Extremities: Normal Inspection, Normal Capillary Refill Neurological: Alert, Oriented, Normal Cognition, No Motor/Sensory Deficits Psychiatric: Normal Affect, Normal Mood Skin Exam: Warm, Dry, No Rash, Ecchymosis (Diffuse bruising to the inferior abdomen), Wound/Incision (Inferior abdomen with serosanguineous drainage) Course - Vital Signs Last Recorded V/S: Last Vital Signs Temp 97.7 F 02/28/19 12:05 Pulse 119 H 02/28/19 12:05 Resp 18 02/28/19 12:05 BP 154/87 H 02/28/19 12:05 Pulse Ox 100 02/28/19 12:05 - Re-Assessments/Exams Free Text/Narrative Re-Assessment/Exam: 02/28/19 13:02 Patient presents to the ED for the evaluation of a wound recheck. Her wounds do not appear to have broke open, however there is an area of serosanguineous discharge from the area of concern. I have directed the patient and her to obtain some sterile gauze packs, and let the wound drain appropriately. I have directed the patient to follow-up with Dr. Patel tomorrow for further direction. The patient and her are amenable to this plan. I will have the nurse instructed them on how to do wound dressing changes at this time. Departure - Departure Time of Disposition: 13:03 Disposition: Home, Self-Care 01 Condition: Fair Clinical Impression: Encounter for wound re-check - Discharge Information *PRESCRIPTION DRUG MONITORING PROGRAM REVIEWED*: No *COPY OF PRESCRIPTION DRUG MONITORING REPORT IN PATIENT ODALYS: No Instructions: Wound Dehiscence, [place] Referrals: Kira Oscar, [employer] [Primary Care Provider] - Additional Instructions: You have been evaluated in the ED today for your wound. Please allow this wound to drain, and use clean dressings as needed to keep the area free from infection. Once a dressing has become saturated please change it. Recommend that you follow up with Dr. Patel tomorrow, for further direction and or evaluation of your wound. Please return to the ED if your symptoms should change or worsen.
== END 2019-02-28 13:25 | disposition home or self-care (01) ==
LOC: JD.ED 11:58
DX: K91.870 Postprocedural hematoma of a digestive system organ or structure following a digestive system procedure (principal); E66.9 Obesity, unspecified; Z79.84 Long term (current) use of oral hypoglycemic drugs; Z79.899 Other long term (current) drug therapy
CPT/HCPCS: 99281; 99282

== ENCOUNTER 2019-03-03 19:55 | Emergency (ER) | payer MEDICAID ==
[2019-03-03 20:10] VITALS: BP 121/80
[2019-03-03] MEDS ORDERED: Sodium Chloride 0.9% 10 ML Syringe FLUSH PRN (20:30)
[2019-03-03] MEDS ORDERED: Ondansetron 4 MG/2 ML SDV IVPUSH ONE (20:30)
[2019-03-03] MEDS ORDERED: Sodium Chloride 0.9% 1,000 ML IV SCH (20:30)
[2019-03-03] MEDS ORDERED: HYDROmorphone 0.5 MG/0.5 ML Syringe IVPUSH ONE ×2 (20:30→21:30)
--- NOTE | 2019-03-03 21:28 | CR ---
Abdomen: Supine and upright views of the abdomen were obtained. Comparison: Prior abdominal CT exam of 04/26/16, no prior abdominal x-ray. Dilated small bowel loops are seen with differential air-fluid levels compatible with small bowel obstruction. There is bowel being seen overlying the left hip most likely representing large left femoral hernia with incarceration. Bony structures show slight degenerative change within the spine. No free air is seen. Impression: 1. Findings felt compatible with large incarcerated left femoral hernia causing small bowel obstruction. Diagnostic code #5
[2019-03-03] MEDS ORDERED: Metoclopramide 10 MG/2 ML SDV IVPUSH ONE (21:30)
--- NOTE | 2019-03-03 21:41 | EDM.PDOC ---
ED HPI GENERAL MEDICAL PROBLEM - General Chief Complaint: Abdominal Pain Stated Complaint: ABDOMINAL PAIN Time Seen by Provider: 03/03/19 20:21 Source of Information: Reports: Patient, RN Notes Reviewed - History of Present Illness INITIAL COMMENTS - FREE TEXT/NARRATIVE: 33-year-old female comes in with abdominal pain nausea, vomiting and inability to have a bowel movement. She did have hernia surgery 5 days ago left lower abdomen. She did take pain medication for the first day or 2 and since that time just taking Tylenol or ibuprofen. She did follow-up at the clinic today with her medical provider with concerns about not having been able to have a BM , poor appetite. She had been taking some stool softener and I believe also some MiraLAX over the last day few days. She states she has had poor appetite, has been trying to eat some food especially can. However this afternoon after taking some mag citrate she has had worsening abdominal pain, cramping, nausea and now also vomiting. No fever or chills. Pain is generalized across the entire mid to lower abdomen. There has been some radiation to her back. No chest pain or difficulty breathing. Abdomen Pain Score (Numeric/FACES): 8 - Related Data Allergies Allergy/AdvReac Type Severity Reaction Status Date / Time steri-strips Allergy Blisters Uncoded 03/03/19 20:10 Home Meds: Home Meds Pnv95/Iron Fum/Folic Acid [ Caplet] 1 tab PO DAILY 04/26/16 [History] Cholecalciferol (Vitamin D3) [Vitamin D3] 1,000 units PO DAILY 02/25/19 [History ] metFORMIN HCl [Metformin HCl] 1,000 mg PO DAILY 02/25/19 [History] Acetaminophen/HYDROcodone [[place] 325-5 MG] 1 tab PO Q4H PRN #40 tablet 02/27/19 [Rx] Docusate Sodium [Colace] 100 mg PO BID 20 Days #40 cap 02/27/19 [Rx] Ibuprofen [Motrin] 600 mg PO Q6H PRN 20 Days #120 tablet 02/27/19 [Rx] Ondansetron [Zofran ODT] 4 mg PO Q8H PRN #28 tab.dis 02/28/19 [Rx] Past Medical History - Past Health History Medical/Surgical History: Denies Medical/Surgical History HEENT History: Reports: None Cardiovascular History: Reports: High Cholesterol Other Cardiovascular History: Patient has high cholesterol on history but states she does not have high cholesterol Respiratory History: Reports: Other (See Below) Other Respiratory History: Pneumonia Gastrointestinal History: Reports: GERD, Other (See Below) Other Gastrointestinal History: Ventral hernia Genitourinary History: Reports: None BUSINESS SUPPORT MANAGER History: Reports: Polycystic Ovaries, Other BUSINESS SUPPORT MANAGER History: Gestational diabetes, pre-eclampsia, chlamydia Musculoskeletal History: Reports: Arthritis Neurological History: Reports: Migraines Psychiatric History: Reports: None Other Psychiatric History: Patient states she gets anxiety but has not been diagnosed with anxiety Endocrine/Metabolic History: Reports: Obesity/BMI 30+, Other (See Below) Other Endocrine/Metabolic History: Insulin resistance Hematologic History: Reports: None Immunologic History: Reports: None Oncologic (Cancer) History: Reports: None Dermatologic History: Reports: None - Infectious Disease History Infectious Disease History: Reports: MRSA, Other (See Below) Other Infectious Disease History: H1N1 - Past Surgical History Head Surgeries/Procedures: Reports: None HEENT Surgical History: Reports: None Cardiovascular Surgical History: Reports: None Respiratory Surgical History: Reports: None GI Surgical History: Reports: Hernia, Abdominal Female Surgical History: Reports: Section Endocrine Surgical History: Reports: None Neurological Surgical History: Reports: None Musculoskeletal Surgical History: Reports: None Oncologic Surgical History: Reports: None Dermatological Surgical History: Reports: None Social & Family History - Tobacco Use Smoking Status *Q: Never Smoker Second Hand Smoke Exposure: No - Caffeine Use Caffeine Use: Reports: None - Recreational Drug Use Recreational Drug Use: No ED ROS GENERAL - Review of Systems Review Of Systems: See Below Constitutional: Denies: Fever, Chills, Diaphoresis HEENT: Reports: No Symptoms Respiratory: Denies: Shortness of Breath, Pleuritic Chest Pain Cardiovascular: Denies: Chest Pain GI/Abdominal: Reports: Abdominal Pain, Nausea, Vomiting. Denies: Hematochezia, Melena Musculoskeletal: Reports: Back Pain (Mild) Skin: Reports: Bruising (There has been bruising lower abdomen status post surgery) Neurological: Reports: No Symptoms ED EXAM, GI/ABD - Physical Exam Exam: See Below General Appearance: Alert, Moderate Distress Throat/Mouth: Other (Oral mucosa is dry) Head: Atraumatic Neck: Supple Respiratory/Chest: No Respiratory Distress, Lungs Clear, Normal Breath Sounds Cardiovascular: Tachycardia GI/Abdominal Exam: Guarding (mild), Rebound (mild), Tender (moderate diffuse tenderness entire lower and mid abd, less severe tenderness upper abd) Extremities: Normal Inspection Neurological: Alert, Oriented, No Motor/Sensory Deficits Skin Exam: Warm, Dry Course - Vital Signs Last Recorded V/S: Last Vital Signs Temp 98.1 F 03/03/19 20:08 Pulse 108 H 03/03/19 20:08 Resp 16 03/03/19 20:08 BP 121/80 03/03/19 20:08 Pulse Ox 99 03/03/19 20:08 - Orders/Labs/Meds Orders: Active Orders 24 hr Category Date Time Status Peripheral IV Care [RC] . DIRECTED Care 03/03/19 20:30 Active Abdomen Pelvis w Cont [CT] Stat Exams 03/03/19 21:24 Taken Potassium Chloride [KCl 10 MEQ in Water 100 ML] 10 meq Med 03/04/19 00:22 Active Premix Bag 1 bag IV ASDIRECTED Sodium Chloride 0.9% [Normal Saline] 1,000 ml Med 03/04/19 00:30 Active IV ASDIRECTED Sodium Chloride 0.9% [Normal Saline] 1,000 ml Med 03/03/19 20:30 Active IV ONETIME Sodium Chloride 0.9% [Saline Flush] Med 03/03/19 20:30 Active 10 ml FLUSH ASDIRECTED PRN Peripheral IV Insertion Adult [OM.PC] Stat Oth 03/03/19 20:30 Ordered Medication Orders Sodium Chloride (Normal Saline) 1,000 mls @ 999 mls/hr IV ONETIME [facility] Last Admin: 03/03/19 20:43 Dose: 999 mls/hr Potassium Chloride 10 meq/ (Premix) 100 mls @ 50 mls/hr IV ASDIRECTED ONE Stop: 03/04/19 02:21 Last Admin: 03/04/19 00:32 Dose: 50 mls/hr Sodium Chloride (Normal Saline) 1,000 mls @ 200 mls/hr IV ASDIRECTED YURIY Last Admin: 03/04/19 00:32 Dose: 200 mls/hr Sodium Chloride (Saline Flush) 10 ml FLUSH ASDIRECTED PRN PRN Reason: Keep Vein Open Last Admin: 03/03/19 20:43 Dose: 10 ml Labs: Laboratory Tests 03/03/19 03/03/19 Range/Units 20:45 20:45 WBC 10.76 H (3.98-10.04) K/mm3 RBC 4.83 (3.98-5.22) M/mm3 Hgb 12.8 (11.2-15.7) gm/L Hct 39.1 (34.1-44.9) % MCV 81.0 (79.4-94.8) fl MCH 26.5 (25.6-32.2) pg MCHC 32.7 (32.2-35.5) g/dl RDW Std Deviation 40.3 (36.4-46.3) fL Plt Count 373 H (182-369) K/mm3 MPV 10.3 (9.4-12.3) fl Neut % (Auto) 69.4 (34.0-71.1) % Lymph % (Auto) 16.5 L (19.3-51.7) % [place] % (Auto) 11.6 (4.7-12.5) % Eos % (Auto) 1.6 (0.7-5.8) Baso % (Auto) 0.4 (0.1-1.2) % Neut # (Auto) 7.47 H (1.56-6.13) K/mm3 Lymph # (Auto) 1.78 (1.18-3.74) K/mm3 [place] # (Auto) 1.25 H (0.24-0.36) K/mm3 Eos # (Auto) 0.17 (0.04-0.36) K/mm3 Baso # (Auto) 0.04 (0.01-0.08) K/mm3 Sodium 135 L (136-145) mEq/L Potassium 3.0 L (3.5-5.1) mEq/L Chloride 94 L D (98-107) mEq/L Carbon Dioxide 30 (21-32) mEq/L Anion Gap 14.0 (5-15) BUN 21 H (7-18) mg/dL Creatinine 1.0 (0.55-1.02) mg/dL Est Cr Clr Drug Dosing 71.33 mL/min Estimated GFR (MDRD) > 60 (>60) mL/min BUN/Creatinine Ratio 21.0 H (14-18) Glucose 103 (74-106) mg/dL Calcium 10.0 D (8.5-10.1) mg/dL Total Bilirubin 3.0 H (0.2-1.0) mg/dL AST 70 H (15-37) U/L ALT 78 H (14-59) U/L Alkaline Phosphatase 111 (46-116) U/L C-Reactive Protein 11.9 H* (<1.0) mg/dL Total Protein 8.5 H (6.4-8.2) g/dl Albumin 3.3 L (3.4-5.0) g/dl Globulin 5.2 gm/dL Albumin/Globulin Ratio 0.6 L (1-2) Meds: Medications Generic Name Dose Route Start Last Admin Trade Name Freq PRN Reason Stop Dose Admin Sodium Chloride 1,000 mls @ 999 mls/hr 03/03/19 20:30 03/03/19 20:43 Normal Saline IV 999 mls/hr ONETIME YURIY Administration Potassium Chloride 10 meq/ 100 mls @ 50 mls/hr 03/04/19 00:22 03/04/19 00:32 Premix IV 03/04/19 02:21 50 mls/hr ASDIRECTED ONE Administration Sodium Chloride 1,000 mls @ 200 mls/hr 03/04/19 00:30 03/04/19 00:32 Normal Saline IV 200 mls/hr ASDIRECTED YURIY Administration Sodium Chloride 10 ml 03/03/19 20:30 03/03/19 20:43 Saline Flush FLUSH 10 ml ASDIRECTED PRN Administration Keep Vein Open Discontinued Medications Generic Name Dose Route Start Last Admin Trade Name Freq PRN Reason Stop Dose Admin Diatrizoate Meglum/Diatrizoate Sod 90 ml 03/03/19 22:46 03/03/19 23:30 Gastrografin 37% PO 03/03/19 22:47 90 ml ONETIME ONE Administration Hydromorphone HCl 0.5 mg 03/03/19 20:30 03/03/19 20:42 Dilaudid IVPUSH 03/03/19 20:31 0.5 mg ONETIME ONE Administration Hydromorphone HCl 0.5 mg 03/03/19 21:30 03/03/19 21:39 Dilaudid IVPUSH 03/03/19 21:31 0.5 mg ONETIME ONE Administration Iohexol 100 ml 03/03/19 22:46 03/03/19 23:31 Omnipaque-300 IVPUSH 03/03/19 22:47 100 ml ONETIME ONE Administration Metoclopramide HCl 5 mg 03/03/19 21:30 03/03/19 21:38 Reglan IVPUSH 03/03/19 21:31 5 mg ONETIME ONE Administration Ondansetron HCl 4 mg 03/03/19 20:30 03/03/19 20:42 Zofran IVPUSH 03/03/19 20:31 4 mg ONETIME ONE Administration - Re-Assessments/Exams Free Text/Narrative Re-Assessment/Exam: 03/04/19 015. Flat and upright abdomen obtained sometime ago did show air- fluid level is very strongly suggestive for small bowel obstruction. Did discuss this with Dr. Patel. She did asked that we proceed with plan to check abdominal CT to help clarify where the obstruction is coming from and to see if there is any evidence for strangulation. CT was done and does show large recurrent ventral hernia along the anterior margin of the mesh with resultant small bowel obstruction. No obvious strangulation, see radiology report for details. Dr. Patel has come in to see patient. She is discussed taking patient to surgery with anesthesia. Nurse counter intelligence technician on-call is not comfortable taking this patient back to surgery, and uncomfortable with current hypokalemia, other risk factors. Dr Patel has discussed this with Dr Pérez, General Surgeon integrated logistics operations manager for [facility] who does accept patient in transfer. Patient will be transferred by ground ambulance. Vitals stable at time of discharge. Infusing IV potassium. Departure - Departure Time of Disposition: 00:30 Disposition: DC/Tfer to Acute Hospital 02 Condition: Serious Clinical Impression: Small bowel obstruction, Hypokalemia - Discharge Information Referrals: Kira Oscar, RECLAMATION ENGINEER [Primary Care Provider] - Forms: ED Department Discharge - My Orders Last 24 Hours: My Active Orders 03/03/19 20:30 Peripheral IV Care [RC] . DIRECTED Sodium Chloride 0.9% [Normal Saline] 1,000 ml IV ONETIME Sodium Chloride 0.9% [Saline Flush] 10 ml FLUSH ASDIRECTED PRN Peripheral IV Insertion Adult [OM.PC] Stat 03/03/19 21:24 Abdomen Pelvis w Cont [CT] Stat 03/04/19 00:22 Potassium Chloride [KCl 10 MEQ in Water 100 ML] 10 meq Premix Bag 1 bag IV ASDIRECTED 03/04/19 00:30 Sodium Chloride 0.9% [Normal Saline] 1,000 ml IV ASDIRECTED - Assessment/Plan Last 24 Hours: My Active Orders 03/03/19 20:30 Peripheral IV Care [RC] . DIRECTED Sodium Chloride 0.9% [Normal Saline] 1,000 ml IV ONETIME Sodium Chloride 0.9% [Saline Flush] 10 ml FLUSH ASDIRECTED PRN Peripheral IV Insertion Adult [OM.PC] Stat 03/03/19 21:24 Abdomen Pelvis w Cont [CT] Stat 03/04/19 00:22 Potassium Chloride [KCl 10 MEQ in Water 100 ML] 10 meq Premix Bag 1 bag IV ASDIRECTED 03/04/19 00:30 Sodium Chloride 0.9% [Normal Saline] 1,000 ml IV ASDIRECTED
[2019-03-03] MEDS ORDERED: Iohexol 647 MG/ML 100 ML Bottle IVPUSH ONE (22:46)
[2019-03-03] MEDS ORDERED: Diatrizoate Meglumine/Diatrizoate Sodium 37% 120 ML Bottle PO ONE (22:46)
[2019-03-04] MEDS ORDERED: Potassium Chloride 10 MEQ in Premix Bag 1 BAG IV ONE (00:22)
[2019-03-04] MEDS ORDERED: Sodium Chloride 0.9% 1,000 ML IV SCH (00:30)
--- NOTE | 2019-03-04 00:43 | PCM.CONS ---
H&P History of Present Illness - General Date of Service: 03/04/19 Source of Information: Patient, Provider History Limitations: Reports: No Limitations - History of Present Illness Initial Comments - Free Text/Narative: he patient is a 33-year-old female who is postoperative day 5 status post laparoscopic incisional hernia repair with mesh. The patient reports persistent intolerance of food with bloating and some vomiting at home. She was seen in the clinic twice postoperatively for complication of bleeding from an inferior abdominal wound and ongoing difficulty with passing a bowel movement. she was treated with MiraLAX and Colace, which did not resolve her symptoms, she then tried both milk of magnesia and magnesium citrate today and attempt to stimulate a bowel movement and noted a big increase in pain. She then presented to the emergency department. once in the ER, she underwent laboratory evaluation which showed a very mildly increased W PC, as well as electrolyte abnormalities of hyponatremia, hypokalemia and hypochoremia. she also had x-ray of the abdomen which showed bowel loops projected over the left hip. CT scan of the abdomen and pelvis revealed recurrence of left lower quadrant hernia and bowel obstruction in the hernia. Abdomen Pain Score (Numeric/FACES): 8 - Related Data Allergies/Adverse Reactions: Allergies Allergy/AdvReac Type Severity Reaction Status Date / Time steri-strips Allergy Blisters Uncoded 03/03/19 20:10 Home Medications: Home Meds Pnv95/Iron Fum/Folic Acid [ Caplet] 1 tab PO DAILY 04/26/16 [History] Cholecalciferol (Vitamin D3) [Vitamin D3] 1,000 units PO DAILY 02/25/19 [History ] metFORMIN HCl [Metformin HCl] 1,000 mg PO DAILY 02/25/19 [History] Acetaminophen/HYDROcodone [[place] 325-5 MG] 1 tab PO Q4H PRN #40 tablet 02/27/19 [Rx] Docusate Sodium [Colace] 100 mg PO BID 20 Days #40 cap 02/27/19 [Rx] Ibuprofen [Motrin] 600 mg PO Q6H PRN 20 Days #120 tablet 02/27/19 [Rx] Ondansetron [Zofran ODT] 4 mg PO Q8H PRN #28 tab.dis 02/28/19 [Rx] Past Medical History - Past Health History Medical/Surgical History: Denies Medical/Surgical History HEENT History: Reports: None Cardiovascular History: Reports: High Cholesterol Other Cardiovascular History: Patient has high cholesterol on history but states she does not have high cholesterol Respiratory History: Reports: Other (See Below) Other Respiratory History: Pneumonia Gastrointestinal History: Reports: GERD, Other (See Below) Other Gastrointestinal History: Ventral hernia Genitourinary History: Reports: None HAND STONER History: Reports: Polycystic Ovaries, Other OB/BYN History: Gestational diabetes, pre-eclampsia, chlamydia Musculoskeletal History: Reports: Arthritis Neurological History: Reports: Migraines Psychiatric History: Reports: None Other Psychiatric History: Patient states she gets anxiety but has not been diagnosed with anxiety Endocrine/Metabolic History: Reports: Obesity/BMI 30+, Other (See Below) Other Endocrine/Metabolic History: Insulin resistance Hematologic History: Reports: None Immunologic History: Reports: None Oncologic (Cancer) History: Reports: None Dermatologic History: Reports: None - Infectious Disease History Infectious Disease History: Reports: MRSA, Other (See Below) Other Infectious Disease History: H1N1 - Past Surgical History Head Surgeries/Procedures: Reports: None HEENT Surgical History: Reports: None Cardiovascular Surgical History: Reports: None Respiratory Surgical History: Reports: None GI Surgical History: Reports: Hernia, Abdominal Female Surgical History: Reports: Section Endocrine Surgical History: Reports: None Neurological Surgical History: Reports: None Musculoskeletal Surgical History: Reports: None Oncologic Surgical History: Reports: None Dermatological Surgical History: Reports: None Social & Family History - Family History Cardiac: Reports: Heart Failure, [place] Respiratory: Reports: COPD : Reports: Other (See Below) Neurological: Reports: CVA Endocrine/Metabolic: Reports: Diabetes, type II - Tobacco Use Smoking Status *Q: Never Smoker Second Hand Smoke Exposure: No - Caffeine Use Caffeine Use: Reports: None - Recreational Drug Use Recreational Drug Use: No H&P Review of Systems - Review of Systems: Review Of Systems: See Below General: Denies: Fever HEENT: Reports: No Symptoms Pulmonary: Reports: Shortness of Breath Cardiovascular: Reports: No Symptoms Gastrointestinal: Reports: Abdominal Pain, Constipation, Nausea, Vomiting Genitourinary: Reports: No Symptoms Musculoskeletal: Reports: No Symptoms Skin: Reports: Bruising Neurological: Reports: No Symptoms Exam - Exam Exam: See Below - Vital Signs Vital Signs: Last Vital Signs Temp 36.7 C 03/03/19 20:08 Pulse 108 H 03/03/19 20:08 Resp 16 03/03/19 20:08 BP 121/80 03/03/19 20:08 Pulse Ox 99 03/03/19 20:08 Weight: 127.913 kg - Exam Quality Assessment: Supplemental Oxygen General: Alert, Oriented HEENT: Conjunctiva Clear, EOMI Neck: Supple Lungs: No: Normal Respiratory Effort Cardiovascular: Tachycardia GI/Abdominal Exam: Soft, Distended, Other (incisions intact, suture over lower midline incision) - Patient Data Lab Results Last 24 hrs: Laboratory Results - last 24 hr 03/03/19 03/03/19 Range/Units 20:45 20:45 WBC 10.76 H (3.98-10.04) K/mm3 RBC 4.83 (3.98-5.22) M/mm3 Hgb 12.8 (11.2-15.7) gm/L Hct 39.1 (34.1-44.9) % MCV 81.0 (79.4-94.8) fl MCH 26.5 (25.6-32.2) pg MCHC 32.7 (32.2-35.5) g/dl RDW Std Deviation 40.3 (36.4-46.3) fL Plt Count 373 H (182-369) K/mm3 MPV 10.3 (9.4-12.3) fl Neut % (Auto) 69.4 (34.0-71.1) % Lymph % (Auto) 16.5 L (19.3-51.7) % [place] % (Auto) 11.6 (4.7-12.5) % Eos % (Auto) 1.6 (0.7-5.8) Baso % (Auto) 0.4 (0.1-1.2) % Neut # (Auto) 7.47 H (1.56-6.13) K/mm3 Lymph # (Auto) 1.78 (1.18-3.74) K/mm3 [place] # (Auto) 1.25 H (0.24-0.36) K/mm3 Eos # (Auto) 0.17 (0.04-0.36) K/mm3 Baso # (Auto) 0.04 (0.01-0.08) K/mm3 Sodium 135 L (136-145) mEq/L Potassium 3.0 L (3.5-5.1) mEq/L Chloride 94 L D (98-107) mEq/L Carbon Dioxide 30 (21-32) mEq/L Anion Gap 14.0 (5-15) BUN 21 H (7-18) mg/dL Creatinine 1.0 (0.55-1.02) mg/dL Est Cr Clr Drug Dosing 71.33 mL/min Estimated GFR (MDRD) > 60 (>60) mL/min BUN/Creatinine Ratio 21.0 H (14-18) Glucose 103 (74-106) mg/dL Calcium 10.0 D (8.5-10.1) mg/dL Total Bilirubin 3.0 H (0.2-1.0) mg/dL AST 70 H (15-37) U/L ALT 78 H (14-59) U/L Alkaline Phosphatase 111 (46-116) U/L C-Reactive Protein 11.9 H* (<1.0) mg/dL Total Protein 8.5 H (6.4-8.2) g/dl Albumin 3.3 L (3.4-5.0) g/dl Globulin 5.2 gm/dL Albumin/Globulin Ratio 0.6 L (1-2) Result Diagrams: 03/03/19 20:45 03/03/19 20:45 Consult PN Assessment/Plan Procedures: Procedures ASSAY OF LIPASE (04/26/16) CHORIONIC GONADOTROPIN ASSAY (04/26/16) COMPLETE CBC W/AUTO DIFF WBC (04/26/16) COMPREHEN METABOLIC PANEL (04/26/16) CT ABD & PELV W/CONTRAST (04/26/16) EMERGENCY DEPT VISIT (04/26/16) HYDRATE IV INFUSION ADD-ON (04/26/16) MED NUTRITION INDIV SUBSEQ (04/15/16) MEDICAL NUTRITION INDIV IN (12/22/15) ROUTINE VENIPUNCTURE (04/26/16) THER/PROPH/DIAG INJ IV PUSH (04/26/16) TX/PRO/DX INJ NEW DRUG ADDON (04/26/16) TX/PRO/DX INJ SAME DRUG GARAGEMAN (04/26/16) URINALYSIS AUTO W/SCOPE (04/26/16) (1) Recurrent incisional hernia SNOMED Code(s): 064732099, 786491234 Code(s): K43.2 - INCISIONAL HERNIA WITHOUT OBSTRUCTION OR GANGRENE Current Visit: Yes (2) Small bowel obstruction SNOMED Code(s): 521090809 Code(s): K56.609 - UNSP INTESTNL OBST, UNSP TO PARTIAL VERSUS COMPLETE OBST Current Visit: Yes Problem List Initiated/Reviewed/Updated: Yes Plan: 33-year-old lady with recurrent incisional hernia, postoperative day 5 from a laparoscopic incisional hernia repair with mesh. patient has signs and symptoms of a small bowel obstruction into the recurrent hernia. - recommend immediate operative intervention with removal of mesh for resolution of the bowel obstruction - Patient cannot receive quality care at this location due to her medical comorbidities, transfer is recommended by anesthesia team - contacted Dr. Myles Wilson at [facility] in [place] regarding transfer through [facility] and provided report on the patient - Will transfer patient by ambulance to higher level of care I discussed these findings with the patient and her . She was understanding and agreeable to the plan. Dori Dixon MD General Surgery
--- NOTE | 2019-03-04 07:20 | CT ---
CT abdomen and pelvis Technique: Multiple axial sections were obtained from above the dome of the diaphragm inferiorly through the pubic symphysis. Intravenous and oral contrast was utilized. Comparison: Prior abdominal x-ray performed earlier in the same day (8:55 PM), previous CT abdomen and pelvis exam of 04/26/16. Findings: Dilated small bowel loops are seen. Small bowel is seen within the lower anterior abdominal wall hernia which presumably is the etiology for the small bowel obstruction. This is not femoral in location as suggested on plain film study. There is subcutaneous soft tissue air seen within the anterior and lateral subcutaneous tissues around the hernia Visualized lung bases show nothing acute. Liver contains no focal abnormality. Gallbladder contains no calcified gallstones. Spleen appears normal. Adrenal glands show no nodule. Kidneys show symmetric contrast enhancement without hydronephrosis or mass. Left kidney is smaller in size than the right kidney. Pancreas appears normal. Aorta shows no aneurysm. No retroperitoneal adenopathy is seen. No mesenteric abnormalities are seen. No pelvic mass or adenopathy is seen. Delayed images show contrast within the distal ureters and within the bladder. Bone window settings were reviewed which show slight degenerative change within the spine. Impression: 1. Lower anterior abdominal wall hernia to the left of midline containing small bowel loops. Proximal small bowel dilatation is seen and hernia is felt to cause small bowel obstruction. 2. Subcutaneous air likely from recent surgery. 3. Other incidental findings as noted above. Diagnostic code #5 I agree with preliminary report from [facility], finalized on 03/04/19, 12:40 AM Central Time
== END 2019-03-04 01:25 ==
LOC: JD.ED 19:55
DX: K56.609 Unspecified intestinal obstruction, unspecified as to partial versus complete obstruction (principal); E87.6 Hypokalemia; E78.00 Pure hypercholesterolemia, unspecified; Z79.899 Other long term (current) drug therapy; Z91.09 Other allergy status, other than to drugs and biological substances
CPT/HCPCS: 36415; 74019; 74177; 80053; 85025; 86140; 96361; 96365; 96375; 96376; 99285; J1170; J2405; J2765; J3480; J7040; Q9963; Q9967; 99284